=== PATIENT | male | born 1990 | race Caucasian/White ===

== ENCOUNTER 2017-12-20 06:56 | Inpatient (IN) | payer OTHER | END 2017-12-21 15:56 | disposition home or self-care (01) | DRG 621 | LOC: O/R 06:56 → SURH 15:33 → SURG 21:11 → SURH 21:57 | PROC: 0J083ZZ Alteration of Abdomen Subcutaneous Tissue and Fascia, Percutaneous Approach (ICD-10-PCS; principal; 2017-12-21) | PROC: 0HBV0ZZ Excision of Bilateral Breast, Open Approach (ICD-10-PCS; 2017-12-21) | PROC: 0JBP0ZZ Excision of Left Lower Leg Subcutaneous Tissue and Fascia, Open Approach (ICD-10-PCS; 2017-12-21) | PROC: 0JBN0ZZ Excision of Right Lower Leg Subcutaneous Tissue and Fascia, Open Approach (ICD-10-PCS; 2017-12-21) | DX: E66.01 Morbid (severe) obesity due to excess calories (principal); E88.1 Lipodystrophy, not elsewhere classified; N62 Hypertrophy of breast ==